=== PATIENT | male | born 1965 | race Caucasian/White ===

== ENCOUNTER 2020-03-06 12:41 | Outpatient (CLI) | payer BC, SELFPAY ==
[2020-03-07 18:19] LABS: SARS-CoV-2 RNA PCR Negative
== END 2020-03-06 12:42 | disposition home or self-care (01) ==
LOC: CHSLAB 12:43
PROVIDERS: PCP Family Medicine; Visit Provider Nurse Practitioner Psychiatric/Mental Health
DX: Z20.828 Contact with and (suspected) exposure to other viral communicable diseases (principal)
CPT/HCPCS: 87635; C9803; U0003

== ENCOUNTER 2021-02-04 23:55 | Emergency (ER) | payer SELFPAY ==
[2021-02-05 00:07] VITALS: BP 145/91; PULSE 97; RESP 22; TEMP 36.4; O2SAT 99
--- NOTE | 2021-02-05 00:08 | ED.ALLEREA ---
HPI - Allergic Reaction General Chief complaint: Allergic Reaction Stated complaint: Possible Allergic Reaction Source: patient and RN notes reviewed Mode of arrival: ambulatory Limitations: no limitations History of Present Illness complaint: allergic reaction and hives Onset (ago): hour(s) (1) Exposure: unknown Symptoms: rash, itching and difficulty swallowing Severity: moderate Treatment prior to arrival: benadryl (25 mg) Previous Allergic Reaction History: other ( He says that he has had this 5 other times but never this bad not sure what he is allergic to) Related Data Home Medications Medication Instructions Recorded Confirmed tamsulosin 0.4 mg PO QID 02/05/21 02/05/21 Allergies Allergy/AdvReac Type Severity Reaction Status Date / Time No Known Allergies Allergy Unknown Unverified 09/13/13 15:51 Review of Systems Review of Systems: All systems reviewed & are unremarkable except as noted in HPI and below PMFSH Past Medical History Medical History (Updated 02/05/21 @ 00:47 by Burton Norris MD) BPH (benign prostatic hyperplasia) Melanoma of scalp Surgical History Surgical History (Updated 02/05/21 @ 00:15 by Burton Norris MD) Abnormal skin morphology determined by biopsy History of ankle surgery left History of repair of fracture of facial bone S/P hernia repair with mesh Family History Family History Other Family history of cardiovascular disease Hypertension Social History Social History Smoking status: Former smoker Alcohol intake: current Course Course Emergency Course: Patient feels better after receiving Pepcid IV, Benadryl IV, and Solu-Medrol IV. He is calling for a ride home as he feels drowsy. Vital Signs Vital signs: Vital Signs Temperature 36.4 C 02/05/21 00:07 Pulse Rate 97 02/05/21 00:07 Respiratory Rate 22 H 02/05/21 00:07 Blood Pressure 145/91 H 02/05/21 00:07 Pulse Oximetry 99 02/05/21 00:07 Temperature 36.6 C 02/05/21 00:59 Pulse Rate 97 02/05/21 00:07 Respiratory Rate 22 H 02/05/21 00:07 Blood Pressure 145/91 H 02/05/21 00:07 Pulse Oximetry 99 02/05/21 00:07 Discharge Plan Discharge Clinical Impression: Allergic reaction Qualifiers: Encounter type: initial encounter Qualified Code(s): T78.40XA - Allergy, unspecified, initial encounter Patient Disposition: Home, Self-Care Condition: Improved Instructions: Anaphylaxis (ED), General Allergic Reaction (ED) Additional Instructions: can use Zyrtec [id number] 10 mg twice daily as needed. Can also use Benadryl 25-50 mg every 4 hours as needed. Prescriptions: No Action tamsulosin 0.4 mg capsule 0.4 mg PO QID RF: 0 Follow-up/Referrals: Get,SARAH Esparza [Primary Care Provider] - Time of Disposition: 00:47
[2021-02-05] MEDS: FAMOTIDINE 20 MG/ISO 50 ML 20 MG/50 ML BAG 100 MG IVPB (00:28)
[2021-02-05] MEDS: methylPREDNISolone SOD SUCC 125 MG VIAL IV PUSH (00:28)
[2021-02-05] MEDS: diphenhydrAMINE HCl INJ 50 MG/ML VIAL IV PUSH (00:28)
[2021-02-05 00:59] VITALS: TEMP 36.6
--- NOTE | 2021-02-08 19:21 | PC.NURSE ---
Pepcid infusion ended at 8. Patient IV patent and locked. alert and oriented x4.
== END 2021-02-05 01:03 | disposition home or self-care (01) ==
PROVIDERS: Emergency Provider Emergency Medicine; PCP Physician Assistant
DX: T78.40XA Allergy, unspecified, initial encounter (principal)
CPT/HCPCS: 96365; 96375; 99283; 99284; J1200; J2930

== ENCOUNTER 2023-03-02 13:06 | Emergency (ER) | payer OTHER, MEDICAID, SELFPAY ==
--- NOTE | ~2023-03-02 | CT_ITS ---
EXAMINATION: CT abdomen pelvis wo con DATE: 03/02/2023 14:01 INDICATION: blood in urine TECHNIQUE: Computed tomography (CT) of the abdomen and pelvis was performed without intravenous contr ast. Automated exposure control and iterative reconstruction technique were employed. The dose-length product was 491.88 mGy-cm. COMPARISON: None. FINDINGS: Lower thorax: Unremarkable. Sub-6 mm right lower lobe groundglass nodule (axial 5/63) which requires no follow-up. Liver: 2.0 cm indeterminate density right liver lobe lesion. Subcentimeter hypodensity in the left lo be, too small to characterize but likely represents a cyst or hemangioma. Biliary/Gallbladder: Cholelithiasis. No bile duct dilation. Pancreas: No mass or duct dilation. Spleen: Normal. Adrenals:No mass. Kidneys: No suspicious mass, obstructing stone, or hydronephrosis. Moderate bilateral perinephric str anding. GI tract: No small or large bowel dilation. Normal appendix. Diverticulosis without diverticulitis. Mesentery/Peritoneum: No ascites, mass, or free air. 6 x 9 mm left subphrenic lymph node. Retroperitoneum: No mass. Atherosclerotic abdominal aortic and/or arterial calcifications. Pelvis: 2 mm calcification in the distal right ureter. Moderate bladder wall thickening in a incomple tely distended urinary bladder. Prostatomegaly with calcification. Soft Tissues: Moderate left and small right uncomplicated fat-containing inguinal hernias Bones: No acute osseous finding. IMPRESSION: Indeterminate 2 cm liver lesion, recommend nonemergent, outpatient MRI of the liver without and with contrast for further evaluation. 2 mm distal right ureteral stone, without findings of obstructive uropathy. Cystitis versus urinary bladder wall thickening from incomplete distention. Reviewed, dictated and finalized at location [facility]. [employer] IMPRESSION: Indeterminate 2 cm liver lesion, recommend nonemergent, outpatient MRI of the l iver without and with contrast for further evaluation. 2 mm distal right ureteral stone, without findings of obstructive uropathy. Cystitis versus urinary bladder wall thickening from incomplete distention.
[2023-03-02 13:10] VITALS: BP 126/77; PULSE 56; RESP 16; TEMP 36.4; O2SAT 100
--- NOTE | 2023-03-02 13:21 | ED.MALEGU ---
HPI - Male Genitourinary General Chief complaint: Urogenital-Male Stated complaint: blood in urine Time Seen by Provider: 03/02/23 13:17 Source: patient Mode of arrival: ambulatory Limitations: no limitations History of Present Illness HPI Narrative: Mu is a 58-year-old male patient presenting to the ER today with complaints of blood in his urine that just started this morning around 11. States that he did feel slightly lightheaded when he was voiding. He denies any flank pain, nausea, vomiting, or abdominal pain. History of BPH. No history of kidney stones. States he did have some burning with urination this morning as well. Related Data Home Medications Medication Instructions Recorded Confirmed tamsulosin 0.4 mg capsule 0.4 mg PO QID 02/05/21 02/05/21 Allergies Allergy/AdvReac Type Severity Reaction Status Date / Time No Known Allergies Allergy Unknown Verified 03/02/23 13:07 [facility] Past Medical History Medical History BPH (benign prostatic hyperplasia) Melanoma of scalp Surgical History Surgical History Abnormal skin morphology determined by biopsy History of ankle surgery left History of repair of fracture of facial bone S/P hernia repair with mesh Family History Family History Other Family history of cardiovascular disease Hypertension Social History Social History Smoking status: Former smoker Alcohol intake: current Comments At the time of my signature, I reviewed and agree with the nursing past medical, surgical, social, and family history. There is no relevant family history pertinent to the patient complaint. Exam Narrative: General: Well-developed, well nourished, in no apparent distress. Head: Normocephalic, atraumatic. Cardio: Regular rate and rhythm, s1 and s2 normal, no murmur appreciated. Resp: Clear to auscultation bilaterally, no rhonchi, rales, wheezing or rubs. Abdomen: Soft, pliable, bowel sounds present in all quadrants, non-tender to palpation, no organomegly, no CVAT tenderness. Course Course Emergency Course: Portions of this record may have been created with voice recognition software. Vital Signs Vital signs: Vital Signs Temperature 36.4 C L 03/02/23 13:10 Pulse Rate 56 L 03/02/23 13:10 Respiratory Rate 16 03/02/23 13:10 Blood Pressure 126/77 03/02/23 13:10 Pulse Oximetry 100 03/02/23 13:10 Oxygen Delivery Room Air 03/02/23 13:10 Temperature 36.4 C L 03/02/23 13:10 Pulse Rate 56 L 03/02/23 13:10 Respiratory Rate 16 03/02/23 13:10 Blood Pressure 126/77 03/02/23 13:10 Pulse Oximetry 100 03/02/23 13:10 Oxygen Delivery Room Air 03/02/23 13:10 Vital signs reviewed MDM - Male Genitourinary MDM Narrative Medical decision making narrative: At the time of visit patient is resting comfortably on the exam table. Patient appears to be nontoxic. Labs, urine, and CT of the abdomen pelvis was performed. CT of the abdomen and pelvis shows a 2 mm stone in the right distal ureter-possible cystitis. Liver lesion measuring approximately 2 cm that is not emergent-possible hemangioma or cyst. White blood cell count was 10.4, H and H is 15 and 44.5. Platelet counts 266. Electrolytes are within normal limits, BUN creatinine is normal and liver function test is normal as well. Urinalysis shows 2+ protein, 3+ blood, 1+ leuko Estrace, greater than 100 rbc's and 6-10 white blood cell. Will send in prescription for Keflex. Patient is already taking Flomax. Denies any discomfort at this time and kidney stone is at the distal ureter. Recommend taking Tylenol/Motrin as needed for pain. Follow-up with PCP regarding liver lesion to have further testing completed. Supportive measures were disc
[2023-03-02 14:21] LABS: Basophils Percent Auto 0.3 % (0.2-1.2); Eosinophils Absolute Auto 0.1 K/mm3 (0-0.3); Eosinophils Percent Auto 0.7 % (0-4.4); Hematocrit 44.5 % (42.0-52.0); Immature Granulocyte Absolute 0.03 K/mm3 (0.00-0.031); Immature Granulocyte Percent A 0.3 % (0-0.5); Lymphocytes Absolute Auto 1.23 K/mm3 (0.9-3.2); Lymphocytes Percent Auto 11.9 % (18.3-44.2); Mean Corpuscular HGB Conc 33.7 g/dl (32-36); Mean Corpuscular Hemoglobin 31.4 pg (26-34); Mean Corpuscular Volume 93.1 fl (80-100); Mean Platelet Volume 9.7 fl (7.4-10.4); Monocytes Absolute Auto 0.5 K/mm3 (0.1-0.6); Monocytes Percent Auto 5.1 % (2.6-8.5); Neutrophils Absolute Auto 8.5 K/mm3 (1.3-6.7); Neutrophils Percent Auto 81.7 % (45.5-73.1); Platelet Count Result 266 k/mm3 (150-375); Red Blood Count 4.78 M/mm3 (4.6-6.20); White Blood Count 10.4 K/mm3 (4.5-10.0)
[2023-03-02 14:29] LABS: Appearance Urine Turbid (Clear); Bacteria Urine None Seen /hpf; Bilirubin Urine Negative (Negative); Blood Urine 3+ (Negative); Glucose Urine UA Negative (Negative); Ketones Urine Negative (Negative); Leukocyte Esterase Ur 1+ LEU/UL (Negative); Nitrate Urine Negative (Negative); Protein Urine 2+ mg/dL (Negative); RBC Urine >100 /hpf (0-2); Specific Grav Ur 1.018 (1.001-1.035); Squamous Epithelial Cell Urine Few /hpf (Few); Urobilinogen Urine 0.2 mg/dL (<2.0); pH Urine 5.5 (5.0-9.0)
[2023-03-02 14:30] LABS: Need Manual Microscopic Reviewed
[2023-03-02 14:31] LABS: Alanine Aminotransferase 24 U/L (6-50); Albumin Level 4.7 g/dL (3.5-5.1); Alkaline Phosphatase 50 U/L (38-126); Anion Gap 8 mmol/L (8-16); Aspartate Amino Transferase 31 U/L (17-59); Bilirubin,Total 0.8 mg/dL (0.2-1.3); Blood Urea Nitrogen 14 mg/dL (9-20); Calcium 9.3 mg/dL (8.4-10.2); Carbon Dioxide 24 mmol/L (22-30); Chloride 105 mmol/L (98-107); Estimated CRCL calculation 88 ml/min; Estimated Glomerular Filt Rate > 60; Glucose 82 mg/dL (65-110); Potassium 4.4 mmol/L (3.4-5.0); Sodium 137 mmol/L (137-145)
[2023-03-02 14:33] LABS: INR 0.9; Prothrombin Time 12.8 Seconds (11.1-14.7)
[2023-03-02 14:34] LABS: Partial Thromboplastin Time 23.3 SECONDS (22.3-36.8)
[2023-03-02 14:42] LABS: Color Urine Dark Yellow (Yellow)
[2023-03-02 14:49] LABS: Add Urine Microscopic? YES
== END 2023-03-02 15:20 | disposition home or self-care (01) ==
PROVIDERS: Emergency Provider Nurse Practitioner Family; PCP Physician Assistant
DX: N30.01 Acute cystitis with hematuria (principal); K76.9 Liver disease, unspecified; N20.1 Calculus of ureter; N40.0 Benign prostatic hyperplasia without lower urinary tract symptoms; Z85.820 Personal history of malignant melanoma of skin; Z87.891 Personal history of nicotine dependence
CPT/HCPCS: 36415; 74176; 80053; 81001; 85025; 85610; 85730; 87086; 99284

== ENCOUNTER 2023-04-18 09:31 | Outpatient (CLI) | payer BC, SELFPAY ==
[2023-04-18 10:26] LABS: Prostate Specific Antigen 3.5 ng/mL (< OR = 4.0)
== END 2023-04-18 09:32 | disposition home or self-care (01) ==
LOC: CHSLAB 09:37
DX: N40.1 Benign prostatic hyperplasia with lower urinary tract symptoms (principal)
CPT/HCPCS: 36415; 84153